=== PATIENT | male | born 1965 | race Caucasian/White ===

== ENCOUNTER 2017-11-18 17:26 | Emergency (ER) | payer OTHER, SELFPAY ==
[2017-11-18 17:31] VITALS: BP 132/85; PULSE 88; RESP 20; TEMP 36.8; O2SAT 99
--- NOTE | 2017-11-18 17:48 | DI.RAD_ITS ---
SYMPTOM/DIAGNOSIS: RT SIDED CHEST PAIN PA AND LATERAL CHEST: No priors. The heart is normal in size. The lungs are clear. The mediastinal structures and pleura appear intact. CONCLUSION: Normal chest.
[2017-11-18 18:07] LABS: Abs Immature Grans 0.01 k/cumm (0.0-0.09); Absolute Basophil Count 0.03 k/cumm (0.0-0.2); Absolute Eosinophil Count 0.15 k/cumm (0.0-0.7); Absolute Lymphocyte Count 1.77 k/cumm (1.2-3.4); Absolute Monocyte Count 0.38 k/cumm (0.11-0.7); Absolute Neutrophil Count 4.41 k/cumm (1.2-6.7); Basophils % 0.4; Eosinophils % 2.2; HCT 42.2 % (40.0-50.0); HGB 14.7 g/dL (13.5-17.5); Immature Grans % 0.1; Lymphocytes % 26.2; Mean Corp. HGB Concentration 34.8 g/dL (32.0-36.0); Mean Corpuscular Hemoglobin 30.9 pg (27.0-33.0); Mean Corpuscular Volume 88.8 fL (80-95); Mean Platelet Volume 9.8 fL (8.0-11.0); Monocytes % 5.6; Neutrophils % 65.5; Platelet Count 278 x1000/uL (130-400); RBC 4.75 m/cumm (4.50-6.00); RBC Distribution Width 12.2 % (11.8-14.1); White Blood Cell Count 6.75 k/cumm (4.4-10.8)
[2017-11-18 18:25] LABS: ALT 39 U/L (12-78); AST 23 U/L (15-37); Albumin 3.9 g/dL (3.4-5.0); Alkaline Phosphatase 64 U/L (46-116); Anion Gap 7.7 mmol/L (3-11); BUN 19 mg/dL (7-18); Bilirubin, Total 0.6 mg/dL (0.2-1.0); CO2 29.3 mmol/L (21.0-32.0); Calcium 9.1 mg/dL (8.5-10.1); Chloride 101 mmol/L (98-107); Glucose 120 mg/dL (70-100); NT-proBNP 30 pg/mL; Potassium 3.6 mmol/L (3.5-5.1); Sodium 138 mmol/L (136-145); Total Protein 7.4 g/dL (6.4-8.2)
[2017-11-18 18:27] LABS: Troponin I < 0.02 ng/mL (0.00-0.06)
--- NOTE | 2017-11-18 18:30 | W.ED.GENAD ---
Discharge Plan Disposition Patient Disposition: HOME Condition: Fair Discharge Details Chief Complaint: Chest/Rib Clinical Impression: Atypical chest pain Primary Care Provider: ZEYAD GLEASON ED Provider: Francy Trimble Home Meds and New Rx's Prescriptions: New ibuprofen 600 mg tablet 600 mg PO QID PRN (Reason: pain) Qty: 20 RF: 0 Discharge Instructions Instructions: Chest Pain (ED) Additional Instructions: Encourage hydration. Tylenol and/or ibuprofen as needed for discomfort. Please take ibuprofen as prescribed. You may use 1000 mg of Tylenol every 6 hours as needed for. Not exceed 4000 mg daily. You may try topical patches Salonpas or Lidoderm patches for pain. Please keep a journal regarding discomfort. I have asked our care according to help facilitate follow-up appointment. Avoid activities that increase discomfort. If you develop fever/chills, pain with exertion, back pain, cough, difficulty breathing or other new/worsening symptoms please seek care urgently once again. Referrals: ZEYAD GLEASON [Primary Care Provider] - Discharge Data Discharge Date/Time-TO BE ENTERED AT DEPARTURE: 11/18/17 20:41 Medical Decision Making Patient is a 54-year-old female presenting today with chief complaint of right sided chest pain. Reports the pain began approximately 1 month ago and has progressively been increasing with time. States that today, while at work, was unable to tolerate staying at work secondary to this increase in pain. Denies any fevers or chills. Denies any cough or shortness of breath. Patient appears nontoxic. Vital signs within normal limits. Patient has history of obstructive sleep apnea. She is endorsing discomfort with inspiration. Reports that he can take 70% of breath cannot take 100% because of pain. No recent fevers or chills. States that he has been bicycling and exercising and can blast through the pain. States the pain is maximal with forward elevation of the right upper shoulder. Denies any known trauma. On exam, the patient is indicating the superior lateral aspect of the right chest is area of maximal discomfort. No palpable visible deformity. Pain is elicited with palpation. Full range of motion of the shoulder. I am unable to elicit discomfort with movement of the shoulder at this time. Lungs are clear in all altman. Denies exertional pain, pain seems to be maximal with range of motion more so than exertion. Will obtain laboratory evaluation, chest x-ray and EKG. EKG reviewed by Dr. Shafer. Patient is in normal sinus rhythm with a rate of 76. Computer had noted negative precordial T waves. However, she advised that this is only in V2 and is quite subtle, does not believe that this is suggestive of ischemic change Laboratory evaluation without significant abnormality. No leukocytosis. D-dimer is less than 500. Troponin is less than 0.02. Chest x-ray reviewed by radiologist. Advised the lungs are unremarkable no consolidation. Pleural space unremarkable no pleural effusion or pneumothorax. Heart and mediastinum is unremarkable no cardiomegaly. Bones are unremarkable for patient's age. Advised overall no acute findings. Discussed these findings with the patient. Advised that the description of the discomfort with exacerbation seems to primarily be musculoskeletally based. I encouraged use of anti-inflammatories. We discussed the use of topical patches to help with discomfort. We discussed activities that he should avoid that may exacerbate his discomfort. This has been going on for the past month has been waxing and waning we also discussed keeping a journal to help determine the underlying cause of his discomfort. Patient does not have a primary care, I have asked her care according to help facilitate follow-up with primary care within the next 2 weeks. We discussed new/worsening symptoms when to seek care urgently once again. All of his questions and concerns were addressed and he is in agreement this plan. [facility] General Mode of arrival: ambulatory. Date/Time Provider Initiated Documentation: 11/18/17 17:47. Limitations to Documentation: no limitations. Information obtained by: patient. History of Present Illness 52 year old M presents to the emergency department with the chief complaint of right sided chest wall pain, described as moderate, with intensity rated at 7. Quality is described as aching, and is localized to the chest (right superior lateral chest wall). Patient reports no radiation; denies radiation to back, extremity and abdomen. Patient started experiencing this week(s) (4) and it has been intermittent. Immobilization improves symptom(s), Movement worsens symptoms (particularly with FE of RUE) . Patient notes no other symptoms.; denies cough, fever/chills, headaches, nausea/vomiting, rash, shortness of breath and weakness. Patient did receive the following treatments prior to arrival, none Related Data Home Medications Medication Instructions Recorded Confirmed ibuprofen 600 mg PO QID PRN #20 tab 11/18/17 Previous Rx's Medication Instructions Recorded ibuprofen 600 mg PO QID PRN #20 tab 11/18/17 Allergies Allergy/AdvReac Type Severity Reaction Status Date / Time Penicillins Allergy Unverified 11/18/17 17:33 General Stated Complaint: Chest/Rib ARTI: 3 Review of Systems Constitutional Denies chills, Denies fever(s), Denies headache(s) and Denies weakness ENT Denies headache(s) Cardiovascular Reports as per HPI, Denies diaphoresis, Denies leg edema, Denies lightheadedness, Denies radiating jaw, neck or arm pain, Denies palpitations, Denies dyspnea and Denies dyspnea on exertion Respiratory Denies chest congestion, Denies cough, Denies dyspnea, Denies dyspnea on exertion and Denies wheezing Gastrointestinal Denies abdominal pain, Denies change in stool character, Denies diarrhea, Denies nausea and Denies vomiting Musculoskeletal Reports as per HPI, Denies numbness and Denies tingling Integumentary/Breasts Reports as per HPI, Denies rash, Denies skin pain, Denies sores and Denies wounds Neurologic Denies headache(s), Denies focal weakness, Denies numbness, Denies radicular pain, Denies tingling, Denies paresthesias and Denies weakness Endocrine Denies palpitations Allergic/Immunologic Denies wheezing [facility] Social History Smoking/Tobacco Use Status: Current every day Exam Const General: cooperative, healthy appearing, comfortable, no acute distress, well developed and well groomed Nutritional Appearance: average body habitus and well nourished Orientation: alert and awake Eyes General: appearance normal, both eyes and all related structures Resp Effort & Inspection: normal respiratory effort, able to speak in complete sentences and no respiratory distress Auscultation: clear to auscultation bilaterally, no rales, no rhonchi and no wheezes Cardio Rate: regular rate Rhythm: regular rhythm Heart Sounds: S1 normal and S2 normal GI Inspection: normal to inspection, no abdominal wall ecchymosis, no edema and non-distended Palpation: soft, no hepatosplenomegaly, not firm, no guarding, no hepatosplenomegaly, no masses and not rigid Auscultation: normal bowel sounds Back/Spine/Pelvis Back: no CVA tenderness Cervical Spine: normal cervical lordosis Thoracic/Lumbar Spine: thoracic and lumbar spine normal to inspection Skin General skin exam: no rashes or lesions noted Lesions: no lesions Rashes: no rashes Trauma: no lacerations or abrasions Wounds: no wounds Neuro General: alert, awake and oriented x3 Cognition: normal cognition Speech: speech normal Gait: normal gait Motor: muscle tone normal throughout and strength 5/5 throughout Sensory Exam: no sensory deficits noted Extrem General: normal to inspection, full ROM (full ROM of RUE), normal capillary refill, no joint enlargement noted, no pedal edema, no calf tenderness and normal gait Psych Appearance: grossly normal and well kempt Mental Status: mental status grossly normal Speech and Movement: speech and movement normal Course Vital Signs Temperature 36.8 C 11/18/17 17:31 Pulse 88 11/18/17 17:31 Respiratory Rate 20 11/18/17 17:31 Blood Pressure 132/85 11/18/17 17:31 Pulse Oximetry 99 11/18/17 17:31 Temperature 36.8 C 11/18/17 17:31 Temperature Source Temporal Artery Scan 11/18/17 17:31 Pulse 88 11/18/17 17:31 Respiratory Rate 20 11/18/17 17:31 Respiratory Effort Non-Labored 11/18/17 17:41 Respiratory Depth Normal 11/18/17 17:41 Respiratory Pattern Normal 11/18/17 17:41 Blood Pressure 132/85 11/18/17 17:31 Blood Pressure Position Supine 11/18/17 17:31 Pulse Oximetry 99 11/18/17 17:31 Oxygen Delivery Method Room Air 11/18/17 17:31 Oxygen Flow Rate 0 11/18/17 17:31 Pain Level 7 11/18/17 17:41 Lab/Test Results Lab/Test Results: Laboratory Tests Range/Units 11/18/17 11/18/17 17:50 17:50 WBC (4.4-10.8) k/cumm 6.75 RBC (4.50-6.00) m/cumm 4.75 Hgb (13.5-17.5) g/dL 14.7 Hct (40.0-50.0) % 42.2 MCV (80-95) fL 88.8 MCH (27.0-33.0) pg 30.9 MCHC (32.0-36.0) g/dL 34.8 RDW (11.8-14.1) % 12.2 Plt Count (130-400) x1000/uL 278 MPV (8.0-11.0) fL 9.8 Immature Gran % 0.1 Neutrophils % 65.5 Lymphocytes % 26.2 Monocytes % 5.6 Eosinophils % 2.2 Basophils % 0.4 Absolute Neutrophils (1.2-6.7) k/cumm 4.41 Absolute Lymphocytes (1.2-3.4) k/cumm 1.77 Absolute Monocytes (0.11-0.7) k/cumm 0.38 Absolute Eosinophils (0.0-0.7) k/cumm 0.15 Absolute Basophils (0.0-0.2) k/cumm 0.03 Sodium (136-145) mmol/L 138 Potassium (3.5-5.1) mmol/L 3.6 Chloride (98-107) mmol/L 101 Carbon Dioxide (21.0-32.0) mmol/L 29.3 Anion Gap (3-11) mmol/L 7.7 BUN (7-18) mg/dL 19 H Creatinine (0.70-1.30) mg/dL 0.90 Estimated GFR/1.73 m2 (mL/min/1.73m2) >= 60.00 Glucose (70-100) mg/dL 120 H Calcium (8.5-10.1) mg/dL 9.1 Magnesium (1.8-2.4) mg/dL 2.0 Total Bilirubin (0.2-1.0) mg/dL 0.6 AST (15-37) U/L 23 ALT (12-78) U/L 39 Alkaline Phosphatase (46-116) U/L 64 Troponin I (0.00-0.06) ng/mL < 0.02 NT-Pro-B Natriuret Pep ( - 299) pg/mL 30 Total Protein (6.4-8.2) g/dL 7.4 Albumin (3.4-5.0) g/dL 3.9
--- NOTE | 2017-11-18 18:34 | ED.GENADUL_ITS ---
Discharge Plan Disposition Patient Disposition: HOME Condition: Fair Discharge Details Chief Complaint: Chest/Rib Clinical Impression: Atypical chest pain Primary Care Provider: ZEYAD GLEASON ED Provider: Francy Trimble Home Meds and New Rx's Prescriptions: New ibuprofen 600 mg tablet 600 mg PO QID PRN (Reason: pain) Qty: 20 RF: 0 Discharge Instructions Instructions: Chest Pain (ED) Additional Instructions: Encourage hydration. Tylenol and/or ibuprofen as needed for discomfort. Please take ibuprofen as prescribed. You may use 1000 mg of Tylenol every 6 hours as needed for. Not exceed 4000 mg daily. You may try topical patches Salonpas or Lidoderm patches for pain. Please keep a journal regarding discomfort. I have asked our care according to help facilitate follow-up appointment. Avoid activities that increase discomfort. If you develop fever/ chills, pain with exertion, back pain, cough, difficulty breathing or other new/ worsening symptoms please seek care urgently once again. Referrals: ZEYAD GLEASON [Primary Care Provider] - Discharge Data Discharge Date/Time-TO BE ENTERED AT DEPARTURE: 11/18/17 20:41 Medical Decision Making Patient is a 54-year-old female presenting today with chief complaint of right sided chest pain. Reports the pain began approximately 1 month ago and has progressively been increasing with time. States that today, while at work, was unable to tolerate staying at work secondary to this increase in pain. Denies any fevers or chills. Denies any cough or shortness of breath. Patient appears nontoxic. Vital signs within normal limits. Patient has history of obstructive sleep apnea. She is endorsing discomfort with inspiration. Reports that he can take 70% of breath cannot take 100% because of pain. No recent fevers or chills. States that he has been bicycling and exercising and can blast through the pain. States the pain is maximal with forward elevation of the right upper shoulder. Denies any known trauma. On exam, the patient is indicating the superior lateral aspect of the right chest is area of maximal discomfort. No palpable visible deformity. Pain is elicited with palpation. Full range of motion of the shoulder. I am unable to elicit discomfort with movement of the shoulder at this time. Lungs are clear in all altman. Denies exertional pain, pain seems to be maximal with range of motion more so than exertion. Will obtain laboratory evaluation, chest x-ray and EKG. EKG reviewed by Dr. Shafer. Patient is in normal sinus rhythm with a rate of 76. Computer had noted negative precordial T waves. However, she advised that this is only in V2 and is quite subtle, does not believe that this is suggestive of ischemic change Laboratory evaluation without significant abnormality. No leukocytosis. D- dimer is less than 500. Troponin is less than 0.02. Chest x-ray reviewed by radiologist. Advised the lungs are unremarkable no consolidation. Pleural space unremarkable no pleural effusion or pneumothorax. Heart and mediastinum is unremarkable no cardiomegaly. Bones are unremarkable for patient's age. Advised overall no acute findings. Discussed these findings with the patient. Advised that the description of the discomfort with exacerbation seems to primarily be musculoskeletally based. I encouraged use of anti-inflammatories. We discussed the use of topical patches to help with discomfort. We discussed activities that he should avoid that may exacerbate his discomfort. This has been going on for the past month has been waxing and waning we also discussed keeping a journal to help determine the underlying cause of his discomfort. Patient does not have a primary care, I have asked her care according to help facilitate follow-up with primary care within the next 2 weeks. We discussed new/worsening symptoms when to seek care urgently once again. All of his questions and concerns were addressed and he is in agreement this plan. [facility] General Mode of arrival: ambulatory . Date/Time Provider Initiated Documentation: 11/18/17 17:47 . Limitations to Documentation: no limitations . Information obtained by: patient . History of Present Illness 52 year old M presents to the emergency department with the chief complaint of right sided chest wall pain, described as moderate, with intensity rated at 7. Quality is described as aching, and is localized to the chest (right superior lateral chest wall). Patient reports no radiation; denies radiation to back, extremity and abdomen. Patient started experiencing this week(s) (4) and it has been intermittent. Immobilization improves symptom(s), Movement worsens symptoms (particularly with FE of RUE) . Patient notes no other symptoms.; denies cough, fever/chills, headaches, nausea/vomiting, rash, shortness of breath and weakness. Patient did receive the following treatments prior to arrival, none Related Data Home Medications Medication Instructions Recorded Confirmed ibuprofen 600 mg PO QID PRN #20 tab 11/18/17 Previous Rx's Medication Instructions Recorded ibuprofen 600 mg PO QID PRN #20 tab 11/18/17 Allergies Allergy/AdvReac Type Severity Reaction Status Date / Time Penicillins Allergy Unverified 11/18/17 17:33 General Stated Complaint: Chest/Rib ARTI: 3 Review of Systems Constitutional Denies chills, Denies fever(s), Denies headache(s) and Denies weakness ENT Denies headache(s) Cardiovascular Reports as per HPI, Denies diaphoresis, Denies leg edema, Denies lightheadedness , Denies radiating jaw, neck or arm pain, Denies palpitations, Denies dyspnea and Denies dyspnea on exertion Respiratory Denies chest congestion, Denies cough, Denies dyspnea, Denies dyspnea on exertion and Denies wheezing Gastrointestinal Denies abdominal pain, Denies change in stool character, Denies diarrhea, Denies nausea and Denies vomiting Musculoskeletal Reports as per HPI, Denies numbness and Denies tingling Integumentary/Breasts Reports as per HPI, Denies rash, Denies skin pain, Denies sores and Denies wounds Neurologic Denies headache(s), Denies focal weakness, Denies numbness, Denies radicular pain, Denies tingling, Denies paresthesias and Denies weakness Endocrine Denies palpitations Allergic/Immunologic Denies wheezing [facility] Social History Smoking/Tobacco Use Status: Current every day Exam Const General: cooperative, healthy appearing, comfortable, no acute distress, well developed and well groomed Nutritional Appearance: average body habitus and well nourished Orientation: alert and awake Eyes General: appearance normal, both eyes and all related structures Resp Effort & Inspection: normal respiratory effort, able to speak in complete sentences and no respiratory distress Auscultation: clear to auscultation bilaterally, no rales, no rhonchi and no wheezes Cardio Rate: regular rate Rhythm: regular rhythm Heart Sounds: S1 normal and S2 normal GI Inspection: normal to inspection, no abdominal wall ecchymosis, no edema and non -distended Palpation: soft, no hepatosplenomegaly, not firm, no guarding, no hepatosplenomegaly, no masses and not rigid Auscultation: normal bowel sounds Back/Spine/Pelvis Back: no CVA tenderness Cervical Spine: normal cervical lordosis Thoracic/Lumbar Spine: thoracic and lumbar spine normal to inspection Skin General skin exam: no rashes or lesions noted Lesions: no lesions Rashes: no rashes Trauma: no lacerations or abrasions Wounds: no wounds Neuro General: alert, awake and oriented x3 Cognition: normal cognition Speech: speech normal Gait: normal gait Motor: muscle tone normal throughout and strength 5/5 throughout Sensory Exam: no sensory deficits noted Extrem General: normal to inspection, full ROM (full ROM of RUE), normal capillary refill, no joint enlargement noted, no pedal edema, no calf tenderness and normal gait Psych Appearance: grossly normal and well kempt Mental Status: mental status grossly normal Speech and Movement: speech and movement normal Course Vital Signs Temperature 36.8 C 11/18/17 17:31 Pulse 88 11/18/17 17:31 Respiratory Rate 20 11/18/17 17:31 Blood Pressure 132/85 11/18/17 17:31 Pulse Oximetry 99 11/18/17 17:31 Temperature 36.8 C 11/18/17 17:31 Temperature Source Temporal Artery Scan 11/18/17 17:31 Pulse 88 11/18/17 17:31 Respiratory Rate 20 11/18/17 17:31 Respiratory Effort Non-Labored 11/18/17 17:41 Respiratory Depth Normal 11/18/17 17:41 Respiratory Pattern Normal 11/18/17 17:41 Blood Pressure 132/85 11/18/17 17:31 Blood Pressure Position Supine 11/18/17 17:31 Pulse Oximetry 99 11/18/17 17:31 Oxygen Delivery Method Room Air 11/18/17 17:31 Oxygen Flow Rate 0 11/18/17 17:31 Pain Level 7 11/18/17 17:41 Lab/Test Results Lab/Test Results: Laboratory Tests Range/Units 11/18/17 11/18/17 17:50 17:50 WBC (4.4-10.8) k/cumm 6.75 RBC (4.50-6.00) m/cumm 4.75 Hgb (13.5-17.5) g/dL 14.7 Hct (40.0-50.0) % 42.2 MCV (80-95) fL 88.8 MCH (27.0-33.0) pg 30.9 MCHC (32.0-36.0) g/dL 34.8 RDW (11.8-14.1) % 12.2 Plt Count (130-400) x1000/uL 278 MPV (8.0-11.0) fL 9.8 Immature Gran % 0.1 Neutrophils % 65.5 Lymphocytes % 26.2 Monocytes % 5.6 Eosinophils % 2.2 Basophils % 0.4 Absolute Neutrophils (1.2-6.7) k/cumm 4.41 Absolute Lymphocytes (1.2-3.4) k/cumm 1.77 Absolute Monocytes (0.11-0.7) k/cumm 0.38 Absolute Eosinophils (0.0-0.7) k/cumm 0.15 Absolute Basophils (0.0-0.2) k/cumm 0.03 Sodium (136-145) mmol/L 138 Potassium (3.5-5.1) mmol/L 3.6 Chloride (98-107) mmol/L 101 Carbon Dioxide (21.0-32.0) mmol/L 29.3 Anion Gap (3-11) mmol/L 7.7 BUN (7-18) mg/dL 19 H Creatinine (0.70-1.30) mg/dL 0.90 Estimated GFR/1.73 m2 (mL/min/1.73m2) >= 60.00 Glucose (70-100) mg/dL 120 H Calcium (8.5-10.1) mg/dL 9.1 Magnesium (1.8-2.4) mg/dL 2.0 Total Bilirubin (0.2-1.0) mg/dL 0.6 AST (15-37) U/L 23 ALT (12-78) U/L 39 Alkaline Phosphatase (46-116) U/L 64 Troponin I (0.00-0.06) ng/mL < 0.02 NT-Pro-B Natriuret Pep ( - 299) pg/mL 30 Total Protein (6.4-8.2) g/dL 7.4 Albumin (3.4-5.0) g/dL 3.9
[2017-11-18 18:52] LABS: D-Dimer 273 ng/mlFEU (<500)
--- NOTE | 2017-11-18 19:29 | DI.VRAD_ITS ---
EXAM: XR Chest, 2 Views EXAM DATE/TIME: 11/18/2017 6:34 PM CLINICAL HISTORY: 52 years old, male; Pain; Chest pain; Right-sided chest pain TECHNIQUE: XR of the chest, 2 views. COMPARISON: No relevant prior studies available. FINDINGS: Lungs: Unremarkable. No consolidation. Pleural space: Unremarkable. No pleural effusion. No pneumothorax. Heart/Mediastinum: Unremarkable. No cardiomegaly. Bones/joints: Unremarkable for patient's age. IMPRESSION: No acute findings. Dictated and Authenticated by: Britany Allred MD. Ordering:SERA HUFF MD
[2017-11-18 20:40] VITALS: BP 120/73; PULSE 77; RESP 17; O2SAT 99
--- NOTE | 2017-11-20 08:53 | PDOC.ERCMPRO ---
Care Management Progress Note 11/20-Francy JENKINS requested assistance with a PCP f/u in 1-2 weeks for right anterior chest pain. Patient needs PCP. 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 Referral faxed to [facility] this morning.
== END 2017-11-18 20:41 | disposition home or self-care (01) ==
PROVIDERS: Emergency Provider Physician Assistant
DX: R07.89 Other chest pain (principal); F17.210 Nicotine dependence, cigarettes, uncomplicated
CPT/HCPCS: 36415; 80053; 93005; 99285; 71046; 83735; 83880; 84484; 85025; 85379; 93010

== ENCOUNTER 2020-08-03 03:06 | Outpatient (CLI) | payer OTHER, SELFPAY ==
[2020-08-03 12:32] LABS: Hemoglobin A1C 5.5 % (<5.7)
[2020-08-03 12:34] LABS: CREATININE 0.9 mg/dL (0.70-1.30); Calculated LDL 155 mg/dL (<100); Cholesterol 246 mg/dL (<200); HDL Cholesterol 60 mg/dL (40-60); Triglyceride 158 mg/dL (<150)
== END 2020-08-03 03:07 | disposition home or self-care (01) ==
LOC: LOS 03:06
PROVIDERS: PCP Nurse Practitioner Family; Visit Provider Nurse Practitioner Family
DX: Z00.00 Encounter for general adult medical examination without abnormal findings (principal); Z13.1 Encounter for screening for diabetes mellitus; Z13.220 Encounter for screening for lipoid disorders
CPT/HCPCS: 36415; 80061; 82565; 83036

== ENCOUNTER 2022-03-28 00:52 | Outpatient (CLI) | payer OTHER, SELFPAY ==
[2022-03-28 13:05] LABS: Calculated LDL 175 mg/dL (<100); Cholesterol 268 mg/dL (<200); HDL Cholesterol 64 mg/dL (40-60); Triglyceride 146 mg/dL (<150)
[2022-03-29 11:21] LABS: HIV-1/2 Ag & Ab Screen Negative (Negative)
== END 2022-03-28 00:53 | disposition home or self-care (01) ==
LOC: LOS 00:53
PROVIDERS: PCP Nurse Practitioner Family; Visit Provider Nurse Practitioner Family
DX: Z11.4 Encounter for screening for human immunodeficiency virus [HIV] (principal); E78.2 Mixed hyperlipidemia
CPT/HCPCS: 36415; 80061; 87389